=== PATIENT | female | born 1945 | race Caucasian/White ===

== ENCOUNTER 2018-11-01 09:25 | Emergency (ER) | payer OTHER ==
[~2018-11-01] VITALS: Ht 162.6 cm; Wt 67.6 kg
[~2018-11-01 09:25] MED LIST: ACETAMINOPHEN650 M5 PO; ACIDOPHILUS1 EAC3 PO; ACTONEL 35 MG35 M1 PO; ADVAIR HFA 1112 UNIT INH; ALBUTEROL2.5 MG/3 M IH; ALENDRONATE; ALEVE220 MG PO; ASA81BEC PO; B 12 PO; BENADRYL25 MG PO; BRILINTA90 MG PO; BUSPAR PO; BUSPIRONE HCL7.5 MG PO; CALCIUM 500 +1 EAC5 PO; CALTRATE-600 W1 EACH PO; CARVEDILOL3.125 MG PO; CLONAZEPAM PO; CO Q-10100 MG PO; CYCLOBENZAPRINE10 MG PO; DULERA 200 MCG/13 GM INH; EFFIENT10 MG PO; FISH OIL 1,0001 EAC5 PO; FLEXERIL PO; FOSAMAX 70 MG T70 MG PO; GABAPENTIN100 MG; GALZIN50 MG PO; GLUCOSAMINE1000 MG PO; HYDROCODON-ACE1 EAC7; I-CAPS AREDS S1 EACH PO; IBUPROFEN 800800 M1 PO; IMDUR 30 MG TAB30 M1 PO; LEVAQUIN 250 M250 MG PO; LIPITOR40 MG PO; LISINOPRIL2.5 MG PO; LISINOPRIL5 MG PO; NITROSTAT0.4 MG SL; NORCO 5-325 TA1 EACH PO; NORVASC 5 MG TAB5 MG PO; OMEPRAZOLE40 MG PO; PREDNISONE 10 M10 M1 PO; PREDNISONE 5 MG5 MG PO; PROAIR HFA8.5 GM INH; PROZAC 20 MG20 M1 PO; PROZAC40 MG PO; SPIRIVA INH; TRAMADOL 50 MG50 MG; TYLENOL325 MG PO; VITAMIN B-12500 MCG PO; VITAMINC500 PO; ZANAFLEX4 M1 PO; ZANTAC 150MG T150 M1 PO
[2018-11-01] MEDS ORDERED: ZPAK PO (10:37)
[2018-11-01] MEDS ORDERED: BRILINTA60 MG PO (10:38)
[2018-11-01] MEDS ORDERED: OMEPRAZOLE20 M2 PO (10:38)
[2018-11-01] MEDS ORDERED: ZANAFLEX2 MG PO (10:38)
[2018-11-01] MEDS ORDERED: TRAMADOL 50 MG50 MG PO (10:38)
[2018-11-01] MEDS ORDERED: SYMBICORT160 MCG/4. INH (10:38)
[2018-11-01] MEDS ORDERED: NORCO 5-325 TA1 EAC1 PO (10:51)
[2018-11-01 10:57] VITALS: BP 140/66
== END 2018-11-01 10:58 | disposition home or self-care (01) ==
LOC: M.ERS 09:25
DX: S70.02XA Contusion of left hip, initial encounter (principal); S50.02XA Contusion of left elbow, initial encounter; S40.012A Contusion of left shoulder, initial encounter; J45.909 Unspecified asthma, uncomplicated; F41.0 Panic disorder [episodic paroxysmal anxiety]; F17.210 Nicotine dependence, cigarettes, uncomplicated; Z90.89 Acquired absence of other organs; Z90.710 Acquired absence of both cervix and uterus; Z88.5 Allergy status to narcotic agent; Z91.048 Other nonmedicinal substance allergy status; Z91.09 Other allergy status, other than to drugs and biological substances; W01.0XXA Fall on same level from slipping, tripping and stumbling without subsequent striking against object, initial encounter; Y93.01 Activity, walking, marching and hiking; Y92.512 Supermarket, store or market as the place of occurrence of the external cause; Y99.8 Other external cause status

== ENCOUNTER → 2019-03-04 | Outpatient (CLI) | payer OTHER ==
[~2019-03-04] MED LIST changes: +BRILINTA60 MG PO; +NORCO 5-325 TA1 EAC1 PO; +OMEPRAZOLE20 M2 PO; +SYMBICORT160 MCG/4. INH; +TRAMADOL 50 MG50 MG PO; +ZANAFLEX2 MG PO; +ZPAK PO
== END ==
LOC: M.RAD 16:29
DX: M25.521 Pain in right elbow (principal)